=== PATIENT | female | born 1995 | race Caucasian/White ===

== ENCOUNTER 2018-11-07 18:11 | Emergency (ER) | payer SELFPAY ==
[~2018-11-07] VITALS: Ht 160 cm; Wt 95.3 kg
[2018-11-07 18:25] VITALS: Ht 160 cm; Wt 95.3 kg
[2018-11-07 19:01] LABS: BASOPHIL % 0.4 % (0-2); PLATELET COUNT 204 x10^3mcL (130-400)
[2018-11-07 19:03] LABS: RED CELL DISTRIBUTION WIDTH 17.3 % (11.5-14.5)
[2018-11-07 19:08] LABS: CALCIUM 9.5 mg/dL (8.5-10.1); CARBON DIOXIDE 20.9 mmol/L (21-32); CHLORIDE SERUM 105 mmol/L (98-107); CREATININE SERUM 0.9 mg/dL (0.6-1.0); GFR1 > 60 mL/min; GLUCOSE SERUM 99 mg/dL (74-106); POTASSIUM SERUM 3.6 mmol/L (3.5-5.1); SODIUM SERUM 140 mmol/L (136-145)
[2018-11-07 19:12] LABS: ALBUMIN 3.6 g/dL (3.4-5.0); ALKALINE PHOSPHATASE 54 U/L (46-116); ALT/SGPT 21 U/L (14-59); AST/SGOT 10 U/L (15-37); BILIRUBIN TOTAL 0.26 mg/dL (0.20-1.00); TOTAL PROTEIN, SERUM 7.3 g/dL (6.4-8.2)
[2018-11-07 19:20] LABS: rbc morphology (normal/abnorm) ABNORMAL (NORMAL)
[2018-11-07 20:15] VITALS: BP 112/69
== END 2018-11-07 20:15 | disposition home or self-care (01) ==
LOC: ED 18:11
PROVIDERS: Emergency Medicine
DX: R55 Syncope and collapse (principal); D50.9 Iron deficiency anemia, unspecified; R42 Dizziness and giddiness; R00.2 Palpitations
CPT/HCPCS: J7030